=== PATIENT | male | born 1935 | race Caucasian/White ===

== ENCOUNTER 2018-09-25 18:50 | Inpatient (IN) | payer MEDICARE, OTHER ==
--- NOTE | 2018-09-25 19:33 | ED ---
Recheck HPI - General Chief Complaint: Recheck/Abnormal Lab/Rx Stated Complaint: Chest pain Time Seen by Provider: 09/25/18 19:14 Source: patient, EMS, RN notes reviewed, old records reviewed Mode of arrival: EMS Limitations: no limitations - History of Present Illness Initial Comments: This is an 83-year-old male the ER for evaluation. Presents today for evaluation regards to this. Patient is transferred from outside facility for evaluation of dizziness and difficulty with ambulation low heart rate feelings of lightheadedness and near-syncope as well as elevated potassium. himself currently feels dizzy was feel syncopal. No chest pain shortness breath or abdominal pain. MD Complaint: abnormal lab (Patient transfer for elevated potassium, dizziness and low heart rate) -: minutes(s) Returns Today for: Called Because of Abnormal Lab/Test Symptoms Since Prior Visit: no new symptoms Context: planned re-check Associated Symptoms: none - Related Data Home Medications Medication Instructions Recorded Confirmed Allopurinol [Zyloprim] 100 mg PO DAILY 09/25/18 09/25/18 Ascorbic Acid [Vitamin C] 1,000 mg PO DAILY 09/25/18 09/25/18 Aspirin EC [Ecotrin Low Dose] 81 mg PO HS 09/25/18 09/25/18 Carvedilol [Coreg] 12.5 mg PO BID 09/25/18 09/25/18 Cholecalciferol [Vitamin D3 (25 1,000 unit PO DAILY 09/25/18 09/25/18 Mcg = 1000 Iu)] Dulaglutide [Trulicity] 0.75 mg SQ SA 09/25/18 09/25/18 Ferrous Sulfate [Iron (65 MG 325 mg PO DAILY 09/25/18 09/25/18 Elemental)] Fish Oil/Dha/Epa [Fish Oil 1,200 1 cap PO DAILY 09/25/18 09/25/18 mg Fish Oil] Fluticasone Nasal [place] [Flonase 2 spr EA NOSTRIL DAILY PRN 09/25/18 09/25/18 Nasal [place]] Furosemide [Lasix] 40 mg PO DAILY 09/25/18 09/25/18 Insulin Aspart [NovoLOG Flexpen] 15 units SQ AC-TID 09/25/18 09/25/18 Insulin Aspart [NovoLOG Flexpen] See Protocol SQ ACHS 09/25/18 09/25/18 Insulin Glargine,Hum.rec.anlog 25 unit SQ DAILY 09/25/18 09/25/18 [Lantus Solostar] Lisinopril [Zestril] 20 mg PO DAILY 09/25/18 09/25/18 Loperamide [Imodium] 2 - 4 mg PO TID PRN 09/25/18 09/25/18 Meloxicam [Mobic] 7.5 mg PO DAILY 09/25/18 09/25/18 Potassium Chloride [Klor-Con 20] 20 meq PO AC-SUPPER 09/25/18 09/25/18 Rosuvastatin Calcium [Crestor] 20 mg PO HS 09/25/18 09/25/18 amLODIPine [Norvasc] 10 mg PO BID 09/25/18 09/25/18 Allergies Allergy/AdvReac Type Severity Reaction Status Date / Time No Known Allergies Allergy Verified 09/25/18 19:22 Review of Systems ROS Statement: Those systems with pertinent positive or pertinent negative responses have been documented in the HPI. ROS Other: All systems not noted in ROS Statement are negative. Past Medical History Past Medical History: Coronary Artery Disease (CAD), Diabetes Mellitus, Hypertension Additional Past Medical History / Comment(s): CHF, bladder CA (in remission) History of Any Multi-Drug Resistant Organisms: None Reported Past Surgical History: Coronary Bypass/CABG, Heart Catheterization With Stent Additional Past Surgical History / Comment(s): urostomy Past Psychological History: No Psychological Hx Reported Smoking Status: Never smoker Past Alcohol Use History: None Reported Past Drug Use History: None Reported - Past Family History Father Family Medical History: Diabetes Mellitus General Exam Limitations: no limitations General appearance: alert, in no apparent distress Head exam: Present: atraumatic, normocephalic, normal inspection Eye exam: Present: normal appearance, PERRL, EOMI. Absent: scleral icterus, conjunctival injection, periorbital swelling ENT exam: Present: normal exam, mucous membranes moist Neck exam: Present: normal inspection. Absent: tenderness, meningismus, lymphadenopathy Respiratory exam: Present: normal lung sounds bilaterally. Absent: respiratory distress, wheezes, rales, rhonchi, stridor Cardiovascular Exam: Present: normal rhythm, bradycardia, normal heart sounds. Absent: systolic murmur, diastolic murmur, rubs, gallop, clicks GI/Abdominal exam: Present: soft, normal bowel sounds. Absent: distended, te nderness, guarding, rebound, rigid Extremities exam: Present: normal inspection, full ROM, normal capillary refill. Absent: tenderness, pedal edema, joint swelling, calf tenderness Back exam: Present: normal inspection Neurological exam: Present: alert, oriented X3, CN II-XII intact Psychiatric exam: Present: normal affect, normal mood Skin exam: Present: warm, dry, intact, normal color. Absent: rash Course Vital Signs 09/25/18 09/25/18 09/25/18 18:54 20:00 20:03 Temperature 98.5 F Pulse Rate 56 L 56 L Pulse Rate [ 53 L Pre Owned Sales Consultant ] Respiratory 18 18 Rate Blood Pressure 119/46 126/64 O2 Sat by Pulse 93 L 96 Oximetry 09/25/18 20:58 Temperature Pulse Rate 53 L Pulse Rate [ Pre Owned Sales Consultant ] Respiratory 18 Rate Blood Pressure 132/78 O2 Sat by Pulse 95 Oximetry - Reevaluation(s) Reevaluation #1: Medical and transfer paperwork are reviewed Spoke with transferring physician who did do full treatment for hyperkalemia Heart rate is improving arrival to emergency room Medical Decision Making - Medical Decision Making 83 male the ER for evaluation presented for evaluation of dizziness and ataxia weakness, patient was found elevated potassium and low heart rate. Patient will be admitted for continued potassium control - Lab Data Result diagrams: 09/26/18 05:32 09/26/18 05:32 - EKG Data -: EKG Interpreted by Me (EKG shows QRS wide rate of 57, WV 1:30, QTc 441) Critical Care Time Critical Care Time: Yes Total Critical Care Time: 31 Disposition Clinical Impression: Hyperkalemia, Bradycardia, Near syncope Disposition: ADMITTED IP TO THIS [facility] Condition: Serious Is patient prescribed a controlled substance at d/c from ED?: No
[2018-09-25] MEDS ORDERED: SODIUM CHLORIDE 0.9% 1,000 ML IV STA (19:47)
[2018-09-25] MEDS ORDERED: NITROGLYCERIN SL TABS 0.4 MG TAB SUBLINGUAL PRN (19:47)
[2018-09-25] MEDS ORDERED: ASPIRIN 81 MG PO STA (19:47)
[2018-09-25 20:16] LABS: Anisocytosis Slight; Basophils % (A) 0 %; Eosinophils # (A) 0.3 k/uL (0-0.7); Eosinophils % (A) 4 %; HCT 32.8 % (39.0-53.0); Lymphocytes # (A) 1.3 k/uL (1.0-4.8); Lymphocytes % (A) 18 %; MCH 30.3 pg (25.0-35.0); MCHC 33.5 g/dL (31.0-37.0); MCV 90.4 fL (80.0-100.0); Monocytes # (A) 0.4 k/uL (0-1.0); Monocytes % (A) 5 %; Neutrophils # (A) 4.9 k/uL (1.3-7.7); Neutrophils % (A) 70 %; Platelet Count 131 k/uL (150-450); RBC 3.63 m/uL (4.30-5.90); RDW 16.1 % (11.5-15.5)
[2018-09-25 20:24] LABS: Albumin 4.1 g/dL (3.5-5.0); Calcium 9.6 mg/dL (8.4-10.2); Phosphorus 5.4 mg/dL (2.5-4.5); Total Bilirubin 0.5 mg/dL (0.2-1.3); Total Protein 6.5 g/dL (6.3-8.2)
[2018-09-25 20:26] LABS: Magnesium 2.9 mg/dL (1.6-2.3); Potassium 6.2 mmol/L (3.5-5.1)
[2018-09-25 20:31] LABS: INR 0.9 (<1.2); Prothrombin Time 9.9 sec (9.0-12.0)
[2018-09-25 20:34] LABS: Partial Thromboplastin Time 18.3 sec (22.0-30.0)
[2018-09-25 21:52] LABS: Glucose,Whole Blood 103 mg/dL (75-99)
[2018-09-25 22:25] VITALS: BMI 34.8
[2018-09-26 05:52] LABS: Basophils % (A) 1 %; Eosinophils # (A) 0.3 k/uL (0-0.7); Eosinophils % (A) 4 %; HCT 33.5 % (39.0-53.0); HGB 10.7 gm/dL (13.0-17.5); Hypochromasia Slight; Lymphocytes # (A) 1.5 k/uL (1.0-4.8); Lymphocytes % (A) 23 %; MCH 29.4 pg (25.0-35.0); MCHC 31.9 g/dL (31.0-37.0); MCV 92.2 fL (80.0-100.0); Mean Platelet Volume 7.4; Monocytes # (A) 0.4 k/uL (0-1.0); Monocytes % (A) 6 %; Neutrophils # (A) 4.3 k/uL (1.3-7.7); Neutrophils % (A) 64 %; Platelet Count 137 k/uL (150-450); RBC 3.63 m/uL (4.30-5.90); RDW 15.9 % (11.5-15.5); WBC 6.7 k/uL (3.8-10.6)
[2018-09-26 06:05] LABS: Calcium 9.2 mg/dL (8.4-10.2)
[2018-09-26 06:09] LABS: Potassium 5.1 mmol/L (3.5-5.1)
[2018-09-26 06:57] LABS: Glucose,Whole Blood 140 mg/dL (75-99)
[2018-09-26] MEDS: INSULIN ASPART (NovoLOG) 100 UNIT/ML VIAL SQ SCH ×6 (07:20→20:18)
--- NOTE | 2018-09-26 09:11 | P.CRDCN ---
History of Present Illness Consult date: 09/26/18 Chief complaint: Dizziness and lightheadedness History of present illness: This is a pleasant 83-year-old gentleman with a past medical history significant for coronary artery disease and prior coronary artery bypass grafting, diabetes, hypertension, and dyslipidemia, presented to the emergency room because he was not feeling well. The patient is visiting his daughter from [place]. For the last few days, he has been feeling dizzy and lightheaded. He was about to lose his consciousness. He was feeling weak as well as tired and fatigued. No symptoms of chest pain or chest discomfort, heart racing or fluttering, or syncope. He presented initially into an urgent care and he was told that the heart was a slow and he is to go to the emergency room. In the emergency room he was found to be severely bradycardic with a resting heart rate in the 30s. But beside that he was found to be hyperkalemic with a potassium around 6 and also in renal failure. The patient stated that he was diagnosed with renal failure in the past and he was seen by a technology resource teacher in [place]. According to him and his daughter the patient stated that he was not eating and drinking well for the last few weeks. Currently he is not on any IV fluid. He was given Kayexalate with improvement in his potassium on subsequent improvement in the heart rate. Please note that the patient was receiving Coreg as an outpatient which is on hold at this point. I am going to continue holding the Coreg. Continue monitor the heart rate. Obtain TSH. Also obtain an echocardiogram was Doppler. I would recommend also obtaining a nephrology consult. Past Medical History Past Medical History: Coronary Artery Disease (CAD), Diabetes Mellitus, Hypertension Additional Past Medical History / Comment(s): CHF, bladder CA (in remission), uses nebulizer at home, sleep apnea no cpap History of Any Multi-Drug Resistant Organisms: None Reported Past Surgical History: Appendectomy, Coronary Bypass/CABG, Tonsillectomy Additional Past Surgical History / Comment(s): urostomy, CABG 2008 Past Anesthesia/Blood Transfusion Reactions: No Reported Reaction Smoking Status: Former smoker - Past Family History Father Family Medical History: Diabetes Mellitus Medications and Allergies Home Medications Medication Instructions Recorded Confirmed Type Allopurinol [Zyloprim] 100 mg PO DAILY 09/25/18 09/25/18 History Ascorbic Acid [Vitamin C] 1,000 mg PO DAILY 09/25/18 09/25/18 History Aspirin EC [Ecotrin Low Dose] 81 mg PO HS 09/25/18 09/25/18 History Carvedilol [Coreg] 12.5 mg PO BID 09/25/18 09/25/18 History Cholecalciferol [Vitamin D3 (25 1,000 unit PO DAILY 09/25/18 09/25/18 History Mcg = 1000 Iu)] Dulaglutide [Trulicity] 0.75 mg SQ SA 09/25/18 09/25/18 History Ferrous Sulfate [Iron (65 MG 325 mg PO DAILY 09/25/18 09/25/18 History Elemental)] Fish Oil/Dha/Epa [Fish Oil 1,200 1 cap PO DAILY 09/25/18 09/25/18 History mg Fish Oil] Fluticasone Nasal [place] [Flonase 2 spr EA NOSTRIL DAILY PRN 09/25/18 09/25/18 History Nasal [place]] Furosemide [Lasix] 40 mg PO DAILY 09/25/18 09/25/18 History Insulin Aspart [NovoLOG Flexpen] 15 units SQ AC-TID 09/25/18 09/25/18 History Insulin Aspart [NovoLOG Flexpen] See Protocol SQ ACHS 09/25/18 09/25/18 History Insulin Glargine,Hum.rec.anlog 25 unit SQ DAILY 09/25/18 09/25/18 History [Lantus Solostar] Lisinopril [Zestril] 20 mg PO DAILY 09/25/18 09/25/18 History Loperamide [Imodium] 2 - 4 mg PO TID PRN 09/25/18 09/25/18 History Meloxicam [Mobic] 7.5 mg PO DAILY 09/25/18 09/25/18 History Potassium Chloride [Klor-Con 20] 20 meq PO AC-SUPPER 09/25/18 09/25/18 History Rosuvastatin Calcium [Crestor] 20 mg PO HS 09/25/18 09/25/18 History amLODIPine [Norvasc] 10 mg PO BID 09/25/18 09/25/18 History Allergies Allergy/AdvReac Type Severity Reaction Status Date / Time No Known Allergies Allergy Verified 09/25/18 19:22 Physical Exam Vitals: Vital Signs Temp Pulse Pulse Resp BP Pulse Ox 09/26/18 07:05 93 L 09/26/18 07:00 65 18 104/42 92 L 09/26/18 06:00 58 L 11 L 118/62 93 L 09/26/18 05:00 66 17 127/61 95 09/26/18 04:00 98.0 F 52 L 12 131/56 94 L 09/26/18 03:00 65 18 123/62 92 L 09/26/18 02:00 55 L 12 123/59 96 09/26/18 01:00 54 L 21 127/56 94 L 09/26/18 00:30 55 L 18 94 L 09/26/18 00:00 98.5 F 55 L 17 98/79 95 09/25/18 23:30 55 L 12 130/64 97 09/25/18 23:00 53 L 13 135/69 96 09/25/18 22:30 52 L 18 143/64 94 L 09/25/18 22:15 52 L 20 125/62 94 L 09/25/18 22:00 58 L 16 118/96 94 L 09/25/18 21:45 98.3 F 55 L 13 131/63 96 09/25/18 20:58 53 L 18 132/78 95 09/25/18 20:03 56 L 18 126/64 96 09/25/18 20:00 53 L 09/25/18 18:54 98.5 F 56 L 18 119/46 93 L Intake and Output 09/25/18 09/26/18 09/26/18 22:59 06:59 14:59 Intake Total 1000 100 Output Total 450 900 Balance 550 -800 Intake: IV 1000 100 .9 100 Sodium Chloride 0.9% 1, 1000 000 ml @ 999 mls/hr IV . Q1H1M STA Rx#:[id number] Output: Urine 450 900 Other: Weight 113.2 kg - Constitutional General appearance: no acute distress - Respiratory Respiratory: bilateral: CTA - Cardiovascular Rhythm: regular Heart sounds: normal: S1, S2 Results 09/26/18 05:32 09/26/18 05:32 Cardiac Enzymes 09/25/18 09/25/18 09/26/18 Range/Units 20:05 20:05 01:46 AST 27 (17-59) U/L Troponin I <0.012 <0.012 (0.000-0.034) ng/mL Coagulation 09/25/18 Range/Units 20:05 PT 9.9 (9.0-12.0) sec APTT 18.3 L (22.0-30.0) sec Lipids 09/26/18 Range/Units 05:32 Triglycerides 137 (<150) mg/dL Cholesterol 63 (<200) mg/dL HDL Cholesterol 21 L (40-60) mg/dL CBC 09/25/18 09/26/18 Range/Units 20:05 05:32 WBC 7.0 6.7 (3.8-10.6) k/uL RBC 3.63 L 3.63 L (4.30-5.90) m/uL Hgb 11.0 L 10.7 L (13.0-17.5) gm/dL Hct 32.8 L 33.5 L (39.0-53.0) % Plt Count 131 L 137 L (150-450) k/uL Comprehensive Metabolic Panel 09/25/18 09/26/18 Range/Units 20:05 05:32 Sodium 139 142 (137-145) mmol/L Potassium 6.2 H* 5.1 (3.5-5.1) mmol/L Chloride 109 H 112 H (98-107) mmol/L Carbon Dioxide 19 L 21 L (22-30) mmol/L BUN 66 H 58 H (9-20) mg/dL Creatinine 3.23 H 2.86 H (0.66-1.25) mg/dL Glucose 114 H 127 H (74-99) mg/dL Calcium 9.6 9.2 (8.4-10.2) mg/dL AST 27 (17-59) U/L ALT 29 (21-72) U/L Alkaline Phosphatase 41 (38-126) U/L Total Protein 6.5 (6.3-8.2) g/dL Albumin 4.1 (3.5-5.0) g/dL Current Medications Generic Name Dose Route Start Last Admin Trade Name Freq PRN Reason Stop Dose Admin Aspirin 325 mg 09/26/18 09:00 Aspirin PO DAILY MILDRED Sodium Chloride 1,000 mls @ 75 mls/hr 09/26/18 08:45 Saline 0.9% IV .[id number] MILDRED Insulin Aspart 0 unit 09/26/18 07:30 09/26/18 07:20 Novolog SQ 1 unit ACHS MILDRED Administration Protocol Nitroglycerin 0.4 mg 09/25/18 19:47 Nitrostat SUBLINGUAL Q5M PRN Chest Pain Intake and Output 09/25/18 09/26/18 09/26/18 22:59 06:59 14:59 Intake Total 1000 100 Output Total 450 900 Balance 550 -800 Intake: IV 1000 100 .9 100 Sodium Chloride 0.9% 1, 1000 000 ml @ 999 mls/hr IV . Q1H1M STA Rx#:[id number] Output: Urine 450 900 Other: Weight 113.2 kg 09/26/18 05:32 09/26/18 05:32 Assessment and Plan Assessment: Assessment #1 severe symptomatic bradycardia #2 hyperkalemia #3 acute renal failure #4 coronary artery disease #5 multiple comorbid conditions Plan #1 hold the carvedilol #2 continue monitor the potassium #3 obtain an echocardiogram was Doppler #4 recommend obtaining nephrology consult #5 IV fluid #6 check TSH #7 follow-up with the patient
[2018-09-26] MEDS ORDERED: NON FORMULARY DRUG (Fish Oil/Dha/Epa [Fish Oil 1,200 Mg Fish Oil] 1 CAP) PO SCH (09:30)
[2018-09-26] MEDS ORDERED: FUROSEMIDE 40 MG TAB PO SCH (09:30)
[2018-09-26] MEDS ORDERED: MELOXICAM 7.5 MG TAB PO SCH (09:30)
[2018-09-26] MEDS ORDERED: LISINOPRIL 20 MG TAB PO SCH (09:30)
--- NOTE | 2018-09-26 09:50 | P.NPCON ---
History of Present Illness - Reason for Consult acute renal failure - History of Present Illness Reason for consultation: Acute kidney injury History of present illness: Patient is a 83-year-old male seen in renal consultation for acute kidney injury. Patient's creatinine was 3.3 on admission and is down to 2.86 today. Unclear as to what his baseline renal function is. Patient did have history of renal failure in the past and does follow with a coal cutter in [place]. He is currently visiting for about one month. Patient presented to the hospital due to generalized weakness. He was feeling lightheaded and dizzy. He denies any loss of consciousness. Patient's potassium level was elevated at 6.2 and patient was bradycardic with heart rate in the 30s. Coreg has been discontinued. Hyperkalemia was medically treated. Potassium level this morning is 5.1 which is a hemolyzed sample. Patient has history of bladder cancer and currently has a urostomy. He is nonoliguric. Oral intake is good. No vomiting or diarrhea. Denies use of nonsteroidals. He does have history of diabetes mellitus which was diagnosed about 20 years ago. Denies family history of renal disease. No chest pain or shortness of breath now. No edema. He is maintained on IV fluids. Vital signs are stable. General: The patient appeared well nourished and normally developed. HEENT: Head exam is unremarkable. Neck is without jugular venous distension. LUNGS: Lungs are clear to auscultation and percussion. Breath sounds decreased. HEART: Rate and Rhythm are regular. First and second heart sounds normal. No murmurs, rubs or gallops. ABDOMEN: Abdominal exam reveals normal bowel sounds. Non-tender and non- distended. No evidence of peritonitis. EXTREMITITES: No clubbing, cyanosis, or edema. Past Medical History Past Medical History: Coronary Artery Disease (CAD), Diabetes Mellitus, Hypertension Additional Past Medical History / Comment(s): CHF, bladder CA (in remission), uses nebulizer at home, sleep apnea no cpap History of Any Multi-Drug Resistant Organisms: None Reported Past Surgical History: Appendectomy, Coronary Bypass/CABG, Tonsillectomy Additional Past Surgical History / Comment(s): urostomy, CABG 2009 Past Anesthesia/Blood Transfusion Reactions: No Reported Reaction Smoking Status: Former smoker - Past Family History Father Family Medical History: Diabetes Mellitus Medications and Allergies Home Medications Medication Instructions Recorded Confirmed Type Allopurinol [Zyloprim] 100 mg PO DAILY 09/25/18 09/25/18 History Ascorbic Acid [Vitamin C] 1,000 mg PO DAILY 09/25/18 09/25/18 History Aspirin EC [Ecotrin Low Dose] 81 mg PO HS 09/25/18 09/25/18 History Carvedilol [Coreg] 12.5 mg PO BID 09/25/18 09/25/18 History Cholecalciferol [Vitamin D3 (25 1,000 unit PO DAILY 09/25/18 09/25/18 History Mcg = 1000 Iu)] Dulaglutide [Trulicity] 0.75 mg SQ SA 09/25/18 09/25/18 History Ferrous Sulfate [Iron (65 MG 325 mg PO DAILY 09/25/18 09/25/18 History Elemental)] Fish Oil/Dha/Epa [Fish Oil 1,200 1 cap PO DAILY 09/25/18 09/25/18 History mg Fish Oil] Fluticasone Nasal [place] [Flonase 2 spr EA NOSTRIL DAILY PRN 09/25/18 09/25/18 History Nasal [place]] Furosemide [Lasix] 40 mg PO DAILY 09/25/18 09/25/18 History Insulin Aspart [NovoLOG Flexpen] 15 units SQ AC-TID 09/25/18 09/25/18 History Insulin Aspart [NovoLOG Flexpen] See Protocol SQ ACHS 09/25/18 09/25/18 History Insulin Glargine,Hum.rec.anlog 25 unit SQ DAILY 09/25/18 09/25/18 History [Lantus Solostar] Lisinopril [Zestril] 20 mg PO DAILY 09/25/18 09/25/18 History Loperamide [Imodium] 2 - 4 mg PO TID PRN 09/25/18 09/25/18 History Meloxicam [Mobic] 7.5 mg PO DAILY 09/25/18 09/25/18 History Potassium Chloride [Klor-Con 20] 20 meq PO AC-SUPPER 09/25/18 09/25/18 History Rosuvastatin Calcium [Crestor] 20 mg PO HS 09/25/18 09/25/18 History amLODIPine [Norvasc] 10 mg PO BID 09/25/18 09/25/18 History Allergies Allergy/AdvReac Type Severity Reaction Status Date / Time No Known Allergies Allergy Verified 09/25/18 19:22 Physical Exam Vitals: Vital Signs Temp Pulse Pulse Resp BP Pulse Ox 09/26/18 07:05 93 L 09/26/18 07:00 65 18 104/42 92 L 09/26/18 06:00 58 L 11 L 118/62 93 L 09/26/18 05:00 66 17 127/61 95 09/26/18 04:00 98.0 F 52 L 12 131/56 94 L 09/26/18 03:00 65 18 123/62 92 L 09/26/18 02:00 55 L 12 123/59 96 09/26/18 01:00 54 L 21 127/56 94 L 09/26/18 00:30 55 L 18 94 L 09/26/18 00:00 98.5 F 55 L 17 98/79 95 09/25/18 23:30 55 L 12 130/64 97 09/25/18 23:00 53 L 13 135/69 96 09/25/18 22:30 52 L 18 143/64 94 L 09/25/18 22:15 52 L 20 125/62 94 L 09/25/18 22:00 58 L 16 118/96 94 L 09/25/18 21:45 98.3 F 55 L 13 131/63 96 09/25/18 20:58 53 L 18 132/78 95 09/25/18 20:03 56 L 18 126/64 96 09/25/18 20:00 53 L 09/25/18 18:54 98.5 F 56 L 18 119/46 93 L Intake and Output 09/25/18 09/26/18 09/26/18 22:59 06:59 14:59 Intake Total 1000 100 Output Total 450 900 Balance 550 -800 Intake: IV 1000 100 .9 100 Sodium Chloride 0.9% 1, 1000 000 ml @ 999 mls/hr IV . Q1H1M STA Rx#:[id number] Output: Urine 450 900 Other: Weight 113.2 kg Results - Lab Results Most recent lab results Calcium 9.2 mg/dL (8.4-10.2) 09/26/18 05:32 Phosphorus 5.4 mg/dL (2.5-4.5) H 09/25/18 20:05 Magnesium 2.9 mg/dL (1.6-2.3) H 09/25/18 20:05 09/26/18 05:32 09/26/18 05:32 Assessment and Plan Plan: Assessment: 1. Acute kidney injury mostly prerenal secondary to bradycardia and diaphoresis. Creatinine was 3.23 on admission and is down to 2.86 today. Unknown baseline renal function. 2. Hyperkalemia secondary to acute kidney injury, potassium supplementation, lisinopril and metabolic acidosis. Improved. 3. Metabolic acidosis secondary to acute kidney injury. Better. 4. History of coronary artery disease status post CABG. 5. Insulin-dependent diabetes mellitus. 6. History of bladder cancer status post urostomy. Plan: Continue normal saline at 75 mL an hour. Discontinue lisinopril. Hold Lasix today. Check urinalysis. Check renal ultrasound. Continue to monitor renal function and urine output. Repeat electrolytes in the morning. Thank you for the consultation. I will continue to follow patient with you during his hospital stay.
[2018-09-26] MEDS: ASPIRIN 325 MG TAB PO SCH (10:17)
[2018-09-26] MEDS: ALLOPURINOL 100 MG TAB PO SCH (10:51)
[2018-09-26] MEDS: FERROUS SULFATE 325 MG TAB PO SCH (10:51)
[2018-09-26] MEDS: CHOLECALCIFEROL 1,000 UNIT TAB PO SCH (10:51)
[2018-09-26] MEDS: SODIUM CHLORIDE 0.9% 1,000 ML IV SCH ×2 (10:52→20:23)
[2018-09-26 12:16] LABS: Glucose,Whole Blood 175 mg/dL (75-99)
[2018-09-26 12:19] LABS: Hemoglobin A1C 8.6 % (4.0-6.0)
[2018-09-26 12:54] LABS: Glucose,Whole Blood 148 mg/dL (75-99)
--- NOTE | 2018-09-26 13:27 | ECHOF ---
Referral Reason:Bradycardia MEASUREMENTS -------- HEIGHT: 180.3 cm WEIGHT: 112.9 kg BP: IVSd: 1.3 cm (0.6 - 1.1) LVIDd: 4.5 cm (3.9 - 5.3) LVPWd: 1.5 cm (0.6 - 1.1) IVSs: 1.7 cm LVIDs: 3.2 cm LVPWs: 1.9 cm RVIDd: 3.2 cm (< 3.3) Ao Diam: 3.5 cm (2.0 - 3.7) LA Diam: 3.7 cm (2.7 - 3.8) AV Cusp: 2.1 cm (1.5 - 2.6) EPSS: 1.1 cm MV E Jaswinder: 1.12 m/s MV DecT: 263 ms MV A Jaswinder: 0.62 m/s MV E/A Ratio: 1.81 RAP: 5.00 mmHg RVSP: 35.51 mmHg MV EF SLOPE: 88.81 mm/s (70 - 150) MV EXCURSION: 23.86 mm (> 18.000) FINDINGS -------- Sinus rhythm. This was a technically difficult study with suboptimal views. Previous CABG The left ventricular size is normal. There is mild concentric left ventricular hypertrophy. Overa ll left ventricular systolic function is normal with, an EF between 55 - 60 %. The right ventricle is normal in size. The left atrial size is normal. The right atrial size is normal. Lumason used Interatrial and interventricular septum intact. The aortic valve is trileaflet and appears structurally normal. The mitral valve is normal. Mild mitral regurgitation is present. Mild tricuspid regurgitation present. Right ventricular systolic pressure is normal at < 35 mmHg. There is no pulmonic regurgitation present. The aortic root size is normal. IVC Not well visulized. There is no pericardial effusion. CONCLUSIONS -------- 1. Sinus rhythm. 2. This was a technically difficult study with suboptimal views. 3. Previous CABG 4. The left ventricular size is normal. 5. There is mild concentric left ventricular hypertrophy. 6. Overall left ventricular systolic function is normal with, an EF between 55 - 60 %. 7. The right ventricle is normal in size. 8. The left atrial size is normal. 9. The right atrial size is normal. 10. Lumason used 11. Interatrial and interventricular septum intact. 12. The aortic valve is trileaflet and appears structurally normal. 13. The mitral valve is normal. 14. Mild mitral regurgitation is present. 15. Mild tricuspid regurgitation present. 16. Right ventricular systolic pressure is normal at < 35 mmHg. 17. There is no pulmonic regurgitation present. 18. The aortic root size is normal. 19. IVC Not well visulized. 20. There is no pericardial effusion. GE[employer]BER OPERATOR: Kathi Wolf RDCS
--- NOTE | 2018-09-26 15:47 | US ---
EXAMINATION TYPE: US kidneys/renal and bladder DATE OF EXAM: 09/26/2018 COMPARISON: NONE CLINICAL HISTORY: eran. Patient has history of bladder cancer with bladder removal approximately eight years ago. EXAM MEASUREMENTS: Right Kidney: 12.0 x 5.0 x 5.7 cm Left Kidney: 11.4 x 6.1 x 5.9 cm Technically difficult study performed portably in ICU. Right Kidney: possible cortical defect upper pole where there is increased echogenicity. There is mil d hydronephrosis. Left Kidney: multiple area of shadowing, question possible stones, largest lower pole measures 1.3 x 1.2 cm. Mild hydronephrosis noted. Bladder: surgically absent per patient There is no ascites. Cortical medullary differentiation otherwise maintained. IMPRESSION: Probable focal scarring of the upper pole the right kidney. Left-sided nephrolithiasis. Bilateral mil d hydronephrosis.
--- NOTE | 2018-09-26 16:57 | P.HPIM ---
History of Present Illness This is a pleasant 83 years old male with past medical history of coronary artery disease status post CABG, diabetes mellitus, hypertension, CHF, bladder cancer about 8 years ago status post ureterostomy on the right side of the abd omen, sleep apnea on CPAP. Who presents because of severe dizziness of a few days of duration. Not associated with fall or syncope. No chest pain. No abdominal pain. No change in urine or bowel habits. No nausea vomiting. On admission patient was noticed to be bradycardic with heart rate in the 30s and hyperkalemic with potassium 6.2. Currently heart rate is running in the 50s. Rest of vitals looks stable. CBC showed mild anemia. Creatinine is elevated at 2.8, unknown baseline. Repeat potassium is back to 5.1 which is within normal limits. Glucose is controlled. Troponin is negative. TSH 0.7. Troponin less than 0.012. Ultrasound of the abdomen: Bilateral mild hydronephrosis and left sided nephrolithiasis. EKG showing wide complex rhythm at 57, On admission his Coreg was stopped as well as Lasix and lisinopril, and patient was started on normal saline at 75 L/h. Also patient got 1 dose of Kayexalate. Review of Systems CONSTITUTIONAL: No fever, no malaise, no fatigue. HEENT: No recent visual problems or hearing problems. Denied any sore throat. CARDIOVASCULAR: No orthopnea, PND, no palpitations, no syncope. PULMONARY: No shortness of breath, no cough, no hemoptysis. GASTROINTESTINAL: No diarrhea, no nausea, no vomiting, no abdominal pain. Normoactive bowel sounds. NEUROLOGICAL: No headaches, no weakness, no numbness. HEMATOLOGICAL: Denies any bleeding or petechiae. GENITOURINARY: Denies any burning micturition, frequency, or urgency. MUSCULOSKELETAL/RHEUMATOLOGICAL: Denies any joint pain, swelling, or any muscle pain. ENDOCRINE: Denies any polyuria or polydipsia. Past Medical History Past Medical History: Coronary Artery Disease (CAD), Diabetes Mellitus, Hypertension Additional Past Medical History / Comment(s): CHF, bladder CA (in remission), u ses nebulizer at home, sleep apnea no cpap History of Any Multi-Drug Resistant Organisms: None Reported Past Surgical History: Appendectomy, Coronary Bypass/CABG, Tonsillectomy Additional Past Surgical History / Comment(s): urostomy, CABG 2009 Past Anesthesia/Blood Transfusion Reactions: No Reported Reaction Smoking Status: Former smoker - Past Family History Father Family Medical History: Diabetes Mellitus Medications and Allergies Home Medications Medication Instructions Recorded Confirmed Type Allopurinol [Zyloprim] 100 mg PO DAILY 09/25/18 09/25/18 History Ascorbic Acid [Vitamin C] 1,000 mg PO DAILY 09/25/18 09/25/18 History Aspirin EC [Ecotrin Low Dose] 81 mg PO HS 09/25/18 09/25/18 History Carvedilol [Coreg] 12.5 mg PO BID 09/25/18 09/25/18 History Cholecalciferol [Vitamin D3 (25 1,000 unit PO DAILY 09/25/18 09/25/18 History Mcg = 1000 Iu)] Dulaglutide [Trulicity] 0.75 mg SQ SA 09/25/18 09/25/18 History Ferrous Sulfate [Iron (65 MG 325 mg PO DAILY 09/25/18 09/25/18 History Elemental)] Fish Oil/Dha/Epa [Fish Oil 1,200 1 cap PO DAILY 09/25/18 09/25/18 History mg Fish Oil] Fluticasone Nasal [place] [Flonase 2 spr EA NOSTRIL DAILY PRN 09/25/18 09/25/18 History Nasal [place]] Furosemide [Lasix] 40 mg PO DAILY 09/25/18 09/25/18 History Insulin Aspart [NovoLOG Flexpen] 15 units SQ AC-TID 09/25/18 09/25/18 History Insulin Aspart [NovoLOG Flexpen] See Protocol SQ ACHS 09/25/18 09/25/18 History Insulin Glargine,Hum.rec.anlog 25 unit SQ DAILY 09/25/18 09/25/18 History [Lantus Solostar] Lisinopril [Zestril] 20 mg PO DAILY 09/25/18 09/25/18 History Loperamide [Imodium] 2 - 4 mg PO TID PRN 09/25/18 09/25/18 History Meloxicam [Mobic] 7.5 mg PO DAILY 09/25/18 09/25/18 History Potassium Chloride [Klor-Con 20] 20 meq PO AC-SUPPER 09/25/18 09/25/18 History Rosuvastatin Calcium [Crestor] 20 mg PO HS 09/25/18 09/25/18 History amLODIPine [Norvasc] 10 mg PO BID 09/25/18 09/25/18 History Allergies Allergy/AdvReac Type Severity Reaction Status Date / Time No Known Allergies Allergy Verified 09/25/18 19:22 Physical Exam Vitals: Vital Signs Temp Pulse Pulse Resp BP Pulse Ox 09/26/18 12:00 98.1 F 54 L 12 135/61 94 L 09/26/18 11:00 54 L 12 139/69 97 09/26/18 10:00 54 L 10 L 141/59 95 09/26/18 09:00 53 L 18 147/60 95 09/26/18 08:00 98.4 F 55 L 11 L 137/72 94 L 09/26/18 07:05 93 L 09/26/18 07:00 65 18 104/42 92 L 09/26/18 06:00 58 L 11 L 118/62 93 L 09/26/18 05:00 66 17 127/61 95 09/26/18 04:00 98.0 F 52 L 12 131/56 94 L 09/26/18 03:00 65 18 123/62 92 L 09/26/18 02:00 55 L 12 123/59 96 09/26/18 01:00 54 L 21 127/56 94 L 09/26/18 00:30 55 L 18 94 L 09/26/18 00:00 98.5 F 55 L 17 98/79 95 09/25/18 23:30 55 L 12 130/64 97 09/25/18 23:00 53 L 13 135/69 96 09/25/18 22:30 52 L 18 143/64 94 L 09/25/18 22:15 52 L 20 125/62 94 L 09/25/18 22:00 58 L 16 118/96 94 L 09/25/18 21:45 98.3 F 55 L 13 131/63 96 09/25/18 20:58 53 L 18 132/78 95 09/25/18 20:03 56 L 18 126/64 96 09/25/18 20:00 53 L 09/25/18 18:54 98.5 F 56 L 18 119/46 93 L Intake and Output 09/26/18 09/26/18 09/26/18 06:59 14:59 22:59 Intake Total 100 615 Output Total 900 750 Balance -800 -135 Intake: IV 100 375 .9 100 375 Oral 240 Output: Urine 900 750 GENERAL: The patient is alert and oriented x3, not in any acute distress. Obese HEENT: Pupils are round and equally reacting to light. EOMI. No scleral icterus. No conjunctival pallor. Normocephalic, atraumatic. No pharyngeal erythema. No thyromegaly. CARDIOVASCULAR: S1 and S2 present. No murmurs, rubs, or gallops. PULMONARY: Chest is clear to auscultation, no wheezing or crackles. -ABDOMEN: Soft, nontender, nondistended, normoactive bowel sounds. No palpable organomegaly. Right-sided urostomy MUSCULOSKELETAL: No joint swelling or deformity. EXTREMITIES: No cyanosis, clubbing, or pedal edema. NEUROLOGICAL: Gross neurological examination did not reveal any focal deficits. SKIN: No rashes. Results CBC & Chem 7: 09/26/18 05:32 09/26/18 05:32 Labs: Abnormal Lab Results - Last 24 Hours (Table) 09/25/18 09/25/18 09/25/18 Range/Units 20:05 20:05 20:05 RBC 3.63 L (4.30-5.90) m/uL Hgb 11.0 L (13.0-17.5) gm/dL Hct 32.8 L (39.0-53.0) % RDW 16.1 H (11.5-15.5) % Plt Count 131 L (150-450) k/uL APTT 18.3 L (22.0-30.0) sec Potassium 6.2 H* (3.5-5.1) mmol/L Chloride 109 H (98-107) mmol/L Carbon Dioxide 19 L (22-30) mmol/L BUN 66 H (9-20) mg/dL Creatinine 3.23 H (0.66-1.25) mg/dL Glucose 114 H (74-99) mg/dL POC Glucose (mg/dL) (75-99) mg/dL Hemoglobin A1c (4.0-6.0) % Phosphorus 5.4 H (2.5-4.5) mg/dL Magnesium 2.9 H (1.6-2.3) mg/dL HDL Cholesterol (40-60) mg/dL 09/25/18 09/26/18 09/26/18 Range/Units 21:41 05:32 05:32 RBC 3.63 L (4.30-5.90) m/uL Hgb 10.7 L (13.0-17.5) gm/dL Hct 33.5 L (39.0-53.0) % RDW 15.9 H (11.5-15.5) % Plt Count 137 L (150-450) k/uL APTT (22.0-30.0) sec Potassium (3.5-5.1) mmol/L Chloride 112 H (98-107) mmol/L Carbon Dioxide 21 L (22-30) mmol/L BUN 58 H (9-20) mg/dL Creatinine 2.86 H (0.66-1.25) mg/dL Glucose 127 H (74-99) mg/dL POC Glucose (mg/dL) 103 H (75-99) mg/dL Hemoglobin A1c (4.0-6.0) % Phosphorus (2.5-4.5) mg/dL Magnesium (1.6-2.3) mg/dL HDL Cholesterol 21 L (40-60) mg/dL 09/26/18 09/26/18 09/26/18 Range/Units 05:32 06:46 12:05 RBC (4.30-5.90) m/uL Hgb (13.0-17.5) gm/dL Hct (39.0-53.0) % RDW (11.5-15.5) % Plt Count (150-450) k/uL APTT (22.0-30.0) sec Potassium (3.5-5.1) mmol/L Chloride (98-107) mmol/L Carbon Dioxide (22-30) mmol/L BUN (9-20) mg/dL Creatinine (0.66-1.25) mg/dL Glucose (74-99) mg/dL POC Glucose (mg/dL) 140 H 175 H (75-99) mg/dL Hemoglobin A1c 8.6 H (4.0-6.0) % Phosphorus (2.5-4.5) mg/dL Magnesium (1.6-2.3) mg/dL HDL Cholesterol (40-60) mg/dL 09/26/18 Range/Units 12:52 RBC (4.30-5.90) m/uL Hgb (13.0-17.5) gm/dL Hct (39.0-53.0) % RDW (11.5-15.5) % Plt Count (150-450) k/uL APTT (22.0-30.0) sec Potassium (3.5-5.1) mmol/L Chloride (98-107) mmol/L Carbon Dioxide (22-30) mmol/L BUN (9-20) mg/dL Creatinine (0.66-1.25) mg/dL Glucose (74-99) mg/dL POC Glucose (mg/dL) 148 H (75-99) mg/dL Hemoglobin A1c (4.0-6.0) % Phosphorus (2.5-4.5) mg/dL Magnesium (1.6-2.3) mg/dL HDL Cholesterol (40-60) mg/dL Thrombosis Risk Factor Assmnt - Choose All That Apply Any of the Below Risk Factors Present?: Yes Each Factor Represents 1 point: Obesity (BMI >25), Swollen legs (current) Other Risk Factors: Yes Each Risk Factor Represents 3 Points: Age 75 years or older Other congenital or acquired thrombophilia - If yes, enter type in comment: No Thrombosis Risk Factor Assessment Total Risk Factor Score: 5 Thrombosis Risk Factor Assessment Level: High Risk Assessment and Plan Assessment: Dizziness Bradycardia Acute kidney injury Hyperkalemia, resolved Left side nephrolithiasis Mild bilateral hydronephrosis Obesity Plan: This is a pleasant 83 years old male who presents with dizziness, bradycardia and acute kidney injury. Appreciated cardiology and nephrology recommendation and will follow them. Keep holding Coreg, Lasix and lisinopril. Continue with normal saline at 75 L/h. Monitor potassium and creatinine. Discontinue Mobic. Monitor heart rate at rest of vitals. Continue with insulin and aspirin Labs and medication were reviewed.. Continue same treatment. Continue with symptomatic treatment. Resume home medication. Monitor lytes and vitals. DVT and GI prophylaxis. Further recommendations of the clinical course of the patient DVT prophylaxis: Subcutaneous heparin GI Prophylaxis: Pepcid PT/OT: Pending Prognosis is guarded
[2018-09-26 17:22] LABS: Glucose,Whole Blood 181 mg/dL (75-99)
[2018-09-26 20:18] LABS: Glucose,Whole Blood 136 mg/dL (75-99)
[2018-09-26] MEDS: amLODIPine 10 MG TAB PO SCH (20:19)
[2018-09-26] MEDS: FAMOTIDINE 20 MG/2 ML VIAL IV SCH (20:19)
[2018-09-26] MEDS: HEPARIN SODIUM,PORCINE 5,000 UNIT/ML 1 ML VIAL SQ SCH (20:19)
[2018-09-26] MEDS ORDERED: ATORVASTATIN 40 MG TAB PO SCH (21:00)
[2018-09-26 21:04] LABS: Appearance,Urine Cloudy (Clear); Bacteria,Urine Occasional /hpf; Bilirubin,Urine Negative (Negative); Blood,Urine Negative (Negative); Color,Urine Yellow; Glucose,Urine (UA) Negative (Negative); Ketones,Urine Negative (Negative); Leukocyte Esterase,Urine Large (Negative); Mucus,Urine Rare /hpf; Nitrite,Urine Positive (Negative); PH, Urine 8.5 (5.0-8.0); Protein,Urine 2+ (Negative); RBC,Urine 11 /hpf (0-5); Specific Gravity,Urine 1.013 (1.001-1.035); Urobilinogen,Urine <2.0 mg/dL (<2.0); WBC,Urine 4 /hpf (0-5)
[2018-09-27 03:17] VITALS: TEMP 98.7
[2018-09-27 06:44] LABS: Glucose,Whole Blood 138 mg/dL (75-99)
[2018-09-27] MEDS: INSULIN ASPART (NovoLOG) 100 UNIT/ML VIAL SQ SCH ×6 (06:46→17:21)
[2018-09-27] MEDS ORDERED: INSULIN DETEMIR (LEVEMIR) 100 UNIT/ML SYR SQ SCH (09:00)
[2018-09-27] MEDS: HEPARIN SODIUM,PORCINE 5,000 UNIT/ML 1 ML VIAL SQ SCH (09:39)
[2018-09-27] MEDS: ASPIRIN 325 MG TAB PO SCH (09:39)
[2018-09-27] MEDS: FAMOTIDINE 20 MG/2 ML VIAL IV SCH (09:39)
[2018-09-27] MEDS: amLODIPine 10 MG TAB PO SCH (09:39)
[2018-09-27] MEDS: ALLOPURINOL 100 MG TAB PO SCH (09:39)
[2018-09-27] MEDS: CHOLECALCIFEROL 1,000 UNIT TAB PO SCH (09:39)
[2018-09-27] MEDS: FERROUS SULFATE 325 MG TAB PO SCH (09:39)
--- NOTE | 2018-09-27 09:51 | P.PN ---
Subjective Patient is seen in follow for acute kidney injury. Patient's creatinine was 3.3 on admission and was down to 2.86 as of yesterday. Unclear as to what his baseline renal function is. Patient states he does have history of renal failure and follows with a implementation advisor in [place]. He was noted to be bradycardic on admission which is improved. Potassium level has also improved. Urine output has been good. Patient has a urostomy. No vomiting or diarrhea. Oral intake is good. Hemodynamically stable. Vital signs are stable. General: The patient appeared well nourished and normally developed. HEENT: Head exam is unremarkable. Neck is without jugular venous distension. LUNGS: Lungs are clear to auscultation and percussion. Breath sounds decreased. HEART: Rate and Rhythm are regular. First and second heart sounds normal. No murmurs, rubs or gallops. ABDOMEN: Abdominal exam reveals normal bowel sounds. Non-tender and non- distended. No evidence of peritonitis. EXTREMITITES: No clubbing, cyanosis, or edema. Objective - Vital Signs Vital signs: Vital Signs Temp 98.7 F 09/27/18 03:15 Pulse 54 L 09/27/18 03:15 Resp 18 09/27/18 03:15 BP 137/65 09/27/18 03:15 Pulse Ox 91 L 09/27/18 07:32 Intake & Output 09/26/18 09/27/18 09/27/18 18:59 06:59 18:59 Intake Total 735 240 Output Total 1050 1050 Balance -315 -1050 240 Weight 115.3 kg Intake: IV 375 .9 375 Oral 360 240 Output: Urine 1050 1050 Other: Voiding Method Ileal Conduit (Right) # Voids 1 - Labs CBC & Chem 7: 09/26/18 05:32 09/26/18 05:32 Labs: Abnormal Lab Results - Last 24 Hours (Table) 09/26/18 09/26/18 09/26/18 Range/Units 05:32 12:05 12:52 POC Glucose (mg/dL) 175 H 148 H (75-99) mg/dL Hemoglobin A1c 8.6 H (4.0-6.0) % Urine pH (5.0-8.0) Urine Protein (Negative) Ur Leukocyte Esterase (Negative) Urine RBC (0-5) /hpf Urine Bacteria (None) /hpf Urine Mucus (None) /hpf 09/26/18 09/26/18 09/26/18 Range/Units 15:42 17:02 20:17 POC Glucose (mg/dL) 181 H 136 H (75-99) mg/dL Hemoglobin A1c (4.0-6.0) % Urine pH 8.5 H (5.0-8.0) Urine Protein 2+ H (Negative) Ur Leukocyte Esterase Large H (Negative) Urine RBC 11 H (0-5) /hpf Urine Bacteria Occasional H (None) /hpf Urine Mucus Rare H (None) /hpf 09/27/18 Range/Units 06:42 POC Glucose (mg/dL) 138 H (75-99) mg/dL Hemoglobin A1c (4.0-6.0) % Urine pH (5.0-8.0) Urine Protein (Negative) Ur Leukocyte Esterase (Negative) Urine RBC (0-5) /hpf Urine Bacteria (None) /hpf Urine Mucus (None) /hpf Assessment and Plan Plan: Assessment: 1. Acute kidney injury mostly prerenal secondary to bradycardia and diaphoresis. Creatinine was 3.23 on admission and was down to 2.86 as of yesterday. Unknown baseline renal function. Mild hydronephrosis noted on kidney ultrasound. 2. Hyperkalemia secondary to acute kidney injury, potassium supplementation, lisinopril and metabolic acidosis. Improved. 3. Metabolic acidosis secondary to acute kidney injury. Better. 4. History of coronary artery disease status post CABG. 5. Insulin-dependent diabetes mellitus. 6. History of bladder cancer status post urostomy. 7. Bradycardia secondary to Coreg as well as hyperkalemia. Improved. Plan: Decrease rate of normal saline to 50 mL an hour. Coreg and lisinopril have both been discontinued. Continue to monitor renal function and urine output. Follow-up morning labs.
--- NOTE | 2018-09-27 11:18 | P.PN ---
Subjective Progress Note Date: 09/27/18 Principal diagnosis: Bradycardia/symptomatic This is a pleasant 83-year-old gentleman with a past medical history significant for coronary artery disease and prior coronary artery bypass grafting, diabetes, hypertension, and dyslipidemia, presented to the emergency room because he was not feeling well. The patient is visiting his daughter from [place]. For the last few days, he has been feeling dizzy and lightheaded. He was about to lose his consciousness. He was feeling weak as well as tired and fatigued. No symptoms of chest pain or chest discomfort, heart racing or fluttering, or syncope. He presented initially into an urgent care and he was told that the heart was a slow and he is to go to the emergency room. In the emergency room he was found to be severely bradycardic with a resting heart rate in the 30s. But beside that he was found to be hyperkalemic with a potassium around 6 and also in renal failure. The patient stated that he was diagnosed with renal failure in the past and he was seen by a clinical appeals reviewer in [place]. According to him and his daughter the patient stated that he was not eating and drinking well for the last few weeks. Currently he is not on any IV fluid. He was given Kayexalate with improvement in his potassium on subsequent improvement in the heart rate. Please note that the patient was receiving Coreg as an outpatient which is on hold at this point. On follow-up with the patient today, September 272018, overall he is feeling good and he is asymptomatic. Hemodynamically he is stable. No more episodes of bradycardia. According still on hold. We don't have potassium from today. The echocardiogram revealed normal LV function without any significant valvular abnormalities. The TSH was checked and came in to be unremarkable. Objective - Vital Signs Vital signs: Vital Signs Temp 98.7 F 09/27/18 03:15 Pulse 54 L 09/27/18 03:15 Resp 18 09/27/18 03:15 BP 137/65 09/27/18 03:15 Pulse Ox 91 L 09/27/18 07:32 Intake & Output 09/26/18 09/27/18 09/27/18 18:59 06:59 18:59 Intake Total 735 240 Output Total 1050 1050 700 Balance -315 -1050 -460 Weight 115.3 kg Intake: IV 375 .9 375 Oral 360 240 Output: Urine 1050 1050 700 Other: Voiding Method Ileal Conduit (Right) # Voids 1 - Constitutional General appearance: Present: no acute distress - Respiratory Respiratory: bilateral: CTA - Cardiovascular Rhythm: regular Heart sounds: normal: S1, S2 - Labs CBC & Chem 7: 09/26/18 05:32 09/26/18 05:32 Labs: Abnormal Lab Results - Last 24 Hours (Table) 09/26/18 09/26/18 09/26/18 Range/Units 05:32 12:05 12:52 POC Glucose (mg/dL) 175 H 148 H (75-99) mg/dL Hemoglobin A1c 8.6 H (4.0-6.0) % Urine pH (5.0-8.0) Urine Protein (Negative) Ur Leukocyte Esterase (Negative) Urine RBC (0-5) /hpf Urine Bacteria (None) /hpf Urine Mucus (None) /hpf 09/26/18 09/26/18 09/26/18 Range/Units 15:42 17:02 20:17 POC Glucose (mg/dL) 181 H 136 H (75-99) mg/dL Hemoglobin A1c (4.0-6.0) % Urine pH 8.5 H (5.0-8.0) Urine Protein 2+ H (Negative) Ur Leukocyte Esterase Large H (Negative) Urine RBC 11 H (0-5) /hpf Urine Bacteria Occasional H (None) /hpf Urine Mucus Rare H (None) /hpf 09/27/18 Range/Units 06:42 POC Glucose (mg/dL) 138 H (75-99) mg/dL Hemoglobin A1c (4.0-6.0) % Urine pH (5.0-8.0) Urine Protein (Negative) Ur Leukocyte Esterase (Negative) Urine RBC (0-5) /hpf Urine Bacteria (None) /hpf Urine Mucus (None) /hpf Assessment and Plan Assessment: Assessment #1 severe symptomatic bradycardia which was resolved #2 hyperkalemia #3 acute renal failure #4 coronary artery disease #5 multiple comorbid conditions Plan #1 continue the current medical regimen #2 continue holding carvedilol #3 the echocardiogram review with and showed normal LV function
[2018-09-27 11:32] LABS: Magnesium 2.2 mg/dL (1.6-2.3); Potassium 4.9 mmol/L (3.5-5.1)
[2018-09-27 11:42] LABS: Glucose,Whole Blood 180 mg/dL (75-99)
[2018-09-27] MEDS: SODIUM CHLORIDE 0.9% 1,000 ML IV SCH (12:02)
[2018-09-27 12:28] VITALS: RESP 20
[2018-09-27 12:31] VITALS: BP 141/65; PULSE 59
[2018-09-27 16:47] LABS: Glucose,Whole Blood 156 mg/dL (75-99)
--- NOTE | 2018-09-27 16:48 | P.DS ---
Providers Date of admission: 09/25/18 19:48 Expected date of discharge: 09/27/18 Attending physician: Umer Villeda Consults: 09/25/18 19:47 Consult Physician Routine Consulting Provider: Janeen Antoine Consult Reason/Comments: vidya Do you want consulting provider notified?: Yes 09/26/18 09:06 Consult Physician Routine Consulting Provider: Robert Rodriguez Consult Reason/Comments: Nephrology Do you want consulting provider notified?: Yes Primary care physician: Physician Nonstaff Hospital Course: 83 years old male with past medical history of coronary artery disease status post CABG, diabetes mellitus, hypertension, CHF, bladder cancer about 8 years ago status post ureterostomy on the right side of the abdomen, sleep apnea on CPAP. Who presents because of severe dizziness of a few days of duration. Not associated with fall or syncope. No chest pain. No abdominal pain. No change in urine or bowel habits. No nausea vomiting. On admission patient was noticed to be bradycardic with heart rate in the 30s and hyperkalemic with potassium 6.2. Currently heart rate is running in the 50s. Rest of vitals looks stable. CBC showed mild anemia. Creatinine is elevated at 2.8, unknown baseline. Repeat potassium is back to 5.1 which is within normal limits. Glucose is controlled. Troponin is negative. TSH 0.7. Troponin less than 0.012. Ultrasound of the abdomen: Bilateral mild hydronephrosis and left sided nephrolithiasis. EKG showing wide complex rhythm at 57, On admission his Coreg was stopped as well as Lasix and lisinopril, and patient was started on normal saline at 75 L/h. Also patient got 1 dose of Kayexalate. Nephrology was consulted and patient was treated with IV fluids; YADIRA's and renal function were monitored; patient creatinine improved from 3.3 upon admission to 1.49 Cardiology was consulted for symptomatic bradycardia; beta blockers remained on hold; bradycardia resolved successfully; patient's echocardiogram showed normal left ventricle function without any significant valvular abnormalities; TSH was checked and it was unremarkable; patient was cleared by cardiology and nephrology and patient was discharged home in a stable condition to follow-up with primary applications engineer manufacturing and skills trainer Patient Condition at Discharge: Serious Plan - Discharge Summary Discharge Rx Participant: Yes New Discharge Prescriptions: Continue amLODIPine [Norvasc] 10 mg PO BID Potassium Chloride [Klor-Con 20] 20 meq PO AC-SUPPER Lisinopril [Zestril] 20 mg PO DAILY Fluticasone Nasal [place] [Flonase Nasal [place]] 2 spr EA NOSTRIL DAILY PRN PRN Reason: Allergy Symptoms Aspirin EC [Ecotrin Low Dose] 81 mg PO HS Rosuvastatin Calcium [Crestor] 20 mg PO HS Meloxicam [Mobic] 7.5 mg PO DAILY Loperamide [Imodium] 2 - 4 mg PO TID PRN PRN Reason: Diarrhea Furosemide [Lasix] 40 mg PO DAILY Allopurinol [Zyloprim] 100 mg PO DAILY Ferrous Sulfate [Iron (65 MG Elemental)] 325 mg PO DAILY Cholecalciferol [Vitamin D3 (25 Mcg = 1000 Iu)] 1,000 unit PO DAILY Fish Oil/Dha/Epa [Fish Oil 1,200 mg Fish Oil] 1 cap PO DAILY Ascorbic Acid [Vitamin C] 1,000 mg PO DAILY Insulin Aspart [NovoLOG Flexpen] 15 units SQ AC-TID Dulaglutide [Trulicity] 0.75 mg SQ SA Insulin Aspart [NovoLOG Flexpen] See Protocol SQ ACHS Insulin Glargine,Hum.rec.anlog [Lantus Solostar] 25 unit SQ DAILY Discontinued Carvedilol [Coreg] 12.5 mg PO BID Discharge Medication List Allopurinol [Zyloprim] 100 mg PO DAILY 09/25/18 [History] Ascorbic Acid [Vitamin C] 1,000 mg PO DAILY 09/25/18 [History] Aspirin EC [Ecotrin Low Dose] 81 mg PO HS 09/25/18 [History] Cholecalciferol [Vitamin D3 (25 Mcg = 1000 Iu)] 1,000 unit PO DAILY 09/25/18 [History] Dulaglutide [Trulicity] 0.75 mg SQ SA 09/25/18 [History] Ferrous Sulfate [Iron (65 MG Elemental)] 325 mg PO DAILY 09/25/18 [History] Fish Oil/Dha/Epa [Fish Oil 1,200 mg Fish Oil] 1 cap PO DAILY 09/25/18 [History] Fluticasone Nasal [place] [Flonase Nasal [place]] 2 spr EA NOSTRIL DAILY PRN 09/25/18 [History] Furosemide [Lasix] 40 mg PO DAILY 09/25/18 [History] Insulin Aspart [NovoLOG Flexpen] 15 units SQ AC-TID 09/25/18 [History] Insulin Aspart [NovoLOG Flexpen] See Protocol SQ ACHS 09/25/18 [History] Insulin Glargine,Hum.rec.anlog [Lantus Solostar] 25 unit SQ DAILY 09/25/18 [History] Lisinopril [Zestril] 20 mg PO DAILY 09/25/18 [History] Loperamide [Imodium] 2 - 4 mg PO TID PRN 09/25/18 [History] Meloxicam [Mobic] 7.5 mg PO DAILY 09/25/18 [History] Potassium Chloride [Klor-Con 20] 20 meq PO AC-SUPPER 09/25/18 [History] Rosuvastatin Calcium [Crestor] 20 mg PO HS 09/25/18 [History] amLODIPine [Norvasc] 10 mg PO BID 09/25/18 [History] Follow up Appointment(s)/Referral(s): Leonardo Koehler MD [STAFF PHYSICIAN] - 10/08/18 4:30 pm (Patient needs to show up 10 mins early and bring his insurance card. ) Svetlana,Physician [Primary Care Provider] - 10/20/18 (Patient to follow up with his primary when he gets home from vacation. His primary is in [place]. ) Robert Rodriguez DO [STAFF PHYSICIAN] - 1 Week (Office to call patient on Sunday with a time. ) Activity/Diet/Wound Care/Special Instructions: Activity limited until follow-up Follow up with primary care provider this week continue current diet
[2018-09-28] MEDS ORDERED: Dulaglutide [Trulicity] 0.75 MG SQ SCH (09:00)
[2018-09-28] MEDS ORDERED: FAMOTIDINE 20 MG TAB PO SCH (09:00)
--- NOTE | 2018-09-30 13:04 | CDI ---
Documentation Clarification Form Date: 09/30/2018 From: Beena Maher Phone: If questions call Lucy Haq @ [phone], Hours-8:30 am & 5 pm M- F Admit Date: 09/25/2018 7:48:00 PM Patient Name: Philip Herrmann Visit Number: [id number] Discharge Date: 09/27/2018 5:48:00 PM ATTENTION: The Clinical Documentation Specialists (CDI) and [facility] Coding Staff appreciate your assistance in clarifying documentation. Please respond to the clarification below the line at the bottom and electronically sign. The CDI & [facility] Coding staff will review the response and follow-up if needed. Please note: Queries are made part of the Legal Health Record. If you have any questions, please contact the author of this message via ITS. Dr. Domingo Porras CHF is documented in the Past Medical History of H&P, ED note, consults and DS. History/Risk Factors: s/p CABG, PTCA w stent BNP: none Echocardiogram Results: overall left ventricular systolic function is normal with EF between 55-60%. Chest X Ray: none Treatment: Lasix 40mg PO daily In your professional opinion, can you please clarify type of chronic CHF if known? Systolic Heart Failure Diastolic Heart Failure Systolic & Diastolic Heart Failure Unable to Determine Other, please specify MTDD
== END 2018-09-27 17:48 | disposition home or self-care (01) | DRG 683 ==
LOC: EC 18:50 → 2SICU 19:48 → 3SCARD 09-26 12:34
PROVIDERS: ADMIT Hospitalist; ATTEND Hospitalist
DX: N17.9 Acute kidney failure, unspecified (principal); E87.2 Acidosis; E87.5 Hyperkalemia; R00.1 Bradycardia, unspecified; N13.2 Hydronephrosis with renal and ureteral calculous obstruction; I25.10 Atherosclerotic heart disease of native coronary artery without angina pectoris; G47.30 Sleep apnea, unspecified; D64.9 Anemia, unspecified; E66.9 Obesity, unspecified; Z68.35 Body mass index [BMI] 35.0-35.9, adult; Z79.1 Long term (current) use of non-steroidal anti-inflammatories (NSAID); Z79.82 Long term (current) use of aspirin; Z79.4 Long term (current) use of insulin; Z79.899 Other long term (current) drug therapy; Z87.891 Personal history of nicotine dependence; Z99.89 Dependence on other enabling machines and devices; Z85.51 Personal history of malignant neoplasm of bladder; Z95.1 Presence of aortocoronary bypass graft; E11.9 Type 2 diabetes mellitus without complications; Z93.6 Other artificial openings of urinary tract status; I50.9 Heart failure, unspecified; I49.8 Other specified cardiac arrhythmias; Z95.5 Presence of coronary angioplasty implant and graft; Z83.3 Family history of diabetes mellitus; E78.5 Hyperlipidemia, unspecified; R27.0 Ataxia, unspecified
CPT/HCPCS: 36415; 76770; 80048; 80053; 80061; 81001; 83036; 83735; 84100; 84443; 84484; 85025; 85610; 85730; 93005; 93306; 94760; 96360; 99291